=== PATIENT | female | born 1990 | race Caucasian/White ===

== ENCOUNTER 2020-08-30 16:00 | Outpatient (CLI) | payer MEDICAID ==
[2014-10-25 07:10] VITALS: BMI 27.5
[~2020-08-30 16:00] MED LIST: CYCLOBENZAPRINE10 MG PO
== END 2020-08-30 23:59 | disposition home or self-care (01) ==
LOC: D.MAMMO 16:00
PROVIDERS: ATTEND Family Medicine
DX: N64.4 Mastodynia (principal)

== ENCOUNTER 2021-03-07 14:00 | Outpatient (CLI) | payer BC ==
[2014-10-25 07:10] VITALS: BMI 27.5
== END 2021-03-07 15:00 | disposition home or self-care (01) ==
LOC: D.MAMMO 14:00
PROVIDERS: ATTEND Family Medicine
DX: N63.23 Unspecified lump in the left breast, lower outer quadrant (principal)